=== PATIENT | female | born 1950 | race Asian ===

== ENCOUNTER 2017-12-24 09:42 | Day surgery (SDC) | payer MEDICARE, BC ==
[~2017-12-24] VITALS: Ht 152.4 cm; Wt 52.5 kg
[~2017-12-24 09:42] MED LIST: HYDACE25S; Hair, Skin & N1 EACH
[2017-12-24] MEDS ORDERED: ERGO400 PO (10:46)
== END 2017-12-24 11:48 | disposition home or self-care (01) ==
LOC: ORSCSDS 09:42
PROVIDERS: Surgery
PROC: 0DBK8ZX Excision of Ascending Colon, Via Natural or Artificial Opening Endoscopic, Diagnostic (ICD-10-PCS; principal; 2017-12-24 11:00)
DX: Z12.11 Encounter for screening for malignant neoplasm of colon (principal); D12.2 Benign neoplasm of ascending colon; E78.1 Pure hyperglyceridemia
CPT/HCPCS: 88305; J7120

== ENCOUNTER 2024-04-03 09:20 | Day surgery (SDC) | payer MEDICARE, BC ==
[~2024-04-03] VITALS: Ht 152.4 cm; Wt 52.5 kg
[~2024-04-03 09:20] MED LIST changes: +ERGO400 PO; +Lactated Ringer's 1,000 ML IV ONE; +propofoL 50 ML IV ONE
[2024-04-03] MEDS ORDERED: Vitamin B-12100 MCG (10:00)
[2024-04-03] MEDS ORDERED: CALCIUM CARBON500 M1 (10:01)
[2024-04-03] MEDS ORDERED: Lactated Ringer's 1,000 ML IV ONE (11:25)
--- NOTE | 2024-04-03 11:41 | NUR ---
04/03/24 1141 Awilda Membreno PT AND UPDATED IN DELAY IN START OF PT'S CASE DUE TO CASES RUNNING LONGER THEN THEY WERE SCHEDULED FOR. PT'S CALL LIGHT IN REACH, BED IN LOW, LOCKED POSITON. WILL CONT TO UPDATE IF FURTHER DELAYS ARE EXPECTED.
[2024-04-03 13:09] VITALS: BP 110/62
== END 2024-04-03 13:10 | disposition home or self-care (01) ==
LOC: ORSCSDS 09:20
PROVIDERS: Surgery
PROC: 0DBH8ZX Excision of Cecum, Via Natural or Artificial Opening Endoscopic, Diagnostic (ICD-10-PCS; principal; 2024-04-03 10:30)
DX: Z12.11 Encounter for screening for malignant neoplasm of colon (principal); Z86.010 Personal history of colon polyps; D12.0 Benign neoplasm of cecum; E78.5 Hyperlipidemia, unspecified
CPT/HCPCS: 88305; J2704; J7120